=== PATIENT | female | born 1940 | race Caucasian/White ===

== ENCOUNTER 2022-09-05 10:07 | Emergency (ER) | payer MEDICARE, SELFPAY ==
[2022-09-05 10:26] VITALS: BP 119/81; PULSE 119; RESP 16; TEMP 37.8; O2SAT 98
--- NOTE | 2022-09-05 11:26 | ED.URI ---
HPI - URI/Sore Throat General Chief Complaint: Upper Respiratory Infection Stated Complaint: flu sx Time Seen by Provider: 09/05/22 11:26 Source: patient and RN notes reviewed Mode of arrival: ambulatory Limitations: no limitations History of Present Illness HPI Narrative: 82-year-old female presented for complaint of cough since yesterday. Endorses she lives with her sister who tested positive for covid and flu yesterday. Not taking anything for symptoms. Denies sob, wheezing, fatigue, n/v/d/f/c. MD elicited complaint: cough Related Data Home Medications Medication Instructions Recorded Confirmed allopurinol 100 mg tablet 100 mg PO DAILY 09/05/22 09/05/22 atorvastatin 40 mg tablet 40 mg PO DAILY 09/05/22 09/05/22 omeprazole 20 mg capsule,delayed 20 mg DAILY 09/05/22 09/05/22 release Allergies Allergy/AdvReac Type Severity Reaction Status Date / Time No Known Allergies Allergy Verified 09/05/22 10:33 Review of Systems Review of Systems: CONSTITUTIONAL: Denies malaise, chills, sweats, fever EYES: Denies visual changes, redness, or discharge ENT:Denies rhinorrhea, congestion, sinus pain, otalgia, sore throat CARDIOVASCULAR: Denies chest pain, palpitations, edema RESPIRATORY: Reports cough, Denies dyspnea GASTROINTESTINAL: Denies abdominal pain, nausea, vomiting, diarrhea SKIN: Denies rash or itching MUSCULOSKELETAL: Denies myalgia NEUROLOGIC: Denies headache PMFSH Past Medical History Medical History (Updated 09/05/22 @ 11:37 by Celeste Olson, WIRELINE FIELD OPERATOR) No pertinent past medical history Exam Narrative: GENERAL: mildly Ill-appearing, nontoxic no acute distress. HEAD: Normocephalic EYES: PERRLA, conjunctivae clear, periorbital erythema (reports chronic) ENT: Mucous membranes moist. TM pearly johns with dull light reflex bilaterally; no tragal tenderness. NECK: Supple. No lymphadenopathy CHEST: Clear to auscultation, breath sounds equal. Frequent moist gypsum roofer cough. No wheezing, rhonchi, rales, or stridor. No respiratory distress, speaks in full sentences. HEART: Regular rate and rhythm. No murmur heard. SKIN: Warm, dry, no rash. NEURO: Alert Course Course Emergency Course: Patient is aware of diagnosis, understands and agrees to treatment plan. Anticipatory guidance given. Patient agrees to follow-up as directed and is aware of reasons to seek care at the emergency department. Portions of this record may have been created with voice recognition software Level of Care: Express Care Visit Vital Signs Vital signs: Vital Signs Temperature 100.0 F H 09/05/22 10:26 Pulse Rate 119 H 09/05/22 10:26 Respiratory Rate 16 09/05/22 10:26 Blood Pressure 119/81 09/05/22 10:26 Pulse Oximetry 98 09/05/22 10:26 Oxygen Delivery Room Air 09/05/22 10:26 Temperature 100.0 F H 09/05/22 10:26 Pulse Rate 119 H 09/05/22 10:26 Respiratory Rate 16 09/05/22 10:26 Blood Pressure 119/81 09/05/22 10:26 Pulse Oximetry 98 09/05/22 10:26 Oxygen Delivery Room Air 09/05/22 10:26 reviewed MDM - URI/Sore Throat MDM Narrative Medical decision making narrative: Results of negative covid and flu reviewed with pt and sister. Advised likely too early and to presume positive given sx and known exposure. Advised supportive measures and signs/symptoms to go to the ER. Pt is appropriate for outpt treatment and f/u. Differential Diagnosis Differential diagnosis: Likely upper respiratory infection, sinusitis, viral infection, bronchitis and influenza Lab Data Labs: Lab Results 09/05/22 Range/Units 10:40 POC SARS CoV-2 Ag Negative (Negative) Influenza A Screen Negative Reference Range: Negative Influenza B Screen Negative Reference Range: Negative Discharge Plan Discharge Clinical Impression: Viral infection Patient Disposition: Home, Self-Car
== END 2022-09-05 11:26 | disposition home or self-care (01) ==
PROVIDERS: Emergency Provider Nurse Practitioner Family
DX: B34.9 Viral infection, unspecified (principal); Z20.822 Contact with and (suspected) exposure to COVID-19
CPT/HCPCS: 87426; 87804; 99203; C9803; G0463

== ENCOUNTER 2022-09-07 19:48 | Emergency (ER) | payer MEDICARE, SELFPAY ==
[2022-09-07 19:55] VITALS: O2SAT 98
[2022-09-07 19:56] VITALS: BP 164/116; PULSE 113; RESP 20; TEMP 37.3; O2SAT 98
--- NOTE | 2022-09-07 20:09 | ED.URI ---
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 Patient was seen at this facility 2 days ago for c/o cough; tested negative for covid, given prescription for steroid. Reports med compliance. Patient denies shortness of breath but has audible wheezing upon arrival and is poor historian. Denies chest pain, nausea, vomiting, diarrhea, fevers or chills. Patient is accompanied by sister who also provides information. MD elicited complaint: cough Related Data Home Medications Medication Instructions Recorded Confirmed allopurinol 100 mg tablet 100 mg PO DAILY 09/05/22 09/07/22 atorvastatin 40 mg tablet 40 mg PO DAILY 09/05/22 09/07/22 benzonatate 200 mg capsule 200 mg PO TID PRN Cough 09/07/22 09/07/22 prednisone 20 mg tablet 40 mg PO DAILY 09/07/22 09/07/22 Allergies Allergy/AdvReac Type Severity Reaction Status Date / Time No Known Allergies Allergy Verified 09/07/22 19:51 Review of Systems Review of Systems: CONSTITUTIONAL: Denies malaise, chills, sweats, fever EYES: Denies visual changes, redness, or discharge ENT: Denies rhinorrhea, congestion, sinus pain, otalgia, sore throat CARDIOVASCULAR: Denies chest pain, palpitations, edema RESPIRATORY: Reports cough, wheezing MUSCULOSKELETAL: Denies myalgia NEUROLOGIC: Denies headache [facility] Past Medical History Medical History No pertinent past medical history Exam Narrative: GENERAL: Ill-appearing, nontoxic no acute distress. EYES: PERRLA, conjunctivae clear ENT: Mucous membranes moist. No tripod positioning, muffled voice, soft palate or pharyngeal wall bulging NECK: Supple. No lymphadenopathy CHEST: Wheezing throughout all george. cough is harsh/wheezing. No respiratory distress, speaks in full short sentences. HEART: Regular rate and rhythm. No murmur heard. SKIN: Warm, dry, no rash. NEURO: Alert x2 PSYCH: Normal mood Course Course Emergency Course: Patient is aware of diagnosis, understands and agrees to treatment plan. Anticipatory guidance given. Portions of this record may have been created with voice recognition software Level of Care: Express Care Visit Vital Signs Vital signs: Vital Signs Temperature 99.1 F 09/07/22 19:56 Pulse Rate 113 H 09/07/22 19:56 Respiratory Rate 20 09/07/22 19:56 Blood Pressure 164/116 H 09/07/22 19:56 Pulse Oximetry 98 09/07/22 19:56 Oxygen Delivery Room Air 09/07/22 19:56 Temperature 99.1 F 09/07/22 19:56 Pulse Rate 113 H 09/07/22 19:56 Respiratory Rate 20 09/07/22 19:56 Blood Pressure 164/116 H 09/07/22 19:56 Pulse Oximetry 98 09/07/22 19:56 Oxygen Delivery Room Air 09/07/22 19:56 reviewed Transfer Transfered to: [facility] Transportation: ALS Transfer rationale: Pt is agreeable to transfer. Requests transfer to [facility] via ambulance. Risks of transportation reviewed with pt including injury, worsening of condition and . v/u. Report called to hospital, spoke with Jojo MIGUEL, Dr Betts accepting physician. Pt is in stable condition at time of transfer. Advised to remain NPO and go directly to the hospital. MDM - URI/Sore Throat MDM Narrative Medical decision making narrative: DuoNeb given upon arrival. Mild improvement in aeration, continues with audible wheezing. O2 sat 96% RA. Advised ER transfer via EMS. Requested [facility] however they are on 'bypass status' and do not have CT capabilities. They then requested [facility] in [place], as patient's caregiver resides in [facility]. Differential Diagnosis Differential diagnosis: Lik
[2022-09-07] MEDS: ALBUTEROL SULFATE NEB 2.5 MG/3 ML INH INHALATION (20:15)
[2022-09-07] MEDS: IPRATROPIUM BR 0.02% INH SOLN 0.5 MG/2.5 ML VIAL INHALATION (20:16)
[2022-09-07 20:45] VITALS: PULSE 109; O2SAT 96
== END 2022-09-07 20:58 | disposition short-term general hospital (02) ==
PROVIDERS: Emergency Provider Nurse Practitioner Family
DX: R06.2 Wheezing (principal)
CPT/HCPCS: 94640; 99215; G0463

== ENCOUNTER 2023-06-07 12:43 | Emergency (ER) | payer MEDICARE, SELFPAY ==
--- NOTE | ~2023-06-07 | XR_ITS ---
EXAMINATION: XR chest 2V 06/07/2023 14:39 INDICATION: Cough PROCEDURE: 2 view chest COMPARISON: No prior studies for comparison. FINDINGS: The lungs are clear. The cardiomediastinal silhouette is within normal limits. There are no pleural effusions. There is no pneumothorax suspected. IMPRESSION: 1: NO ACUTE CARDIOPULMONARY DISEASE. Reviewed, dictated and finalized at location B. [employer]
[2023-06-07 13:03] VITALS: BP 149/89; PULSE 80; RESP 20; TEMP 36.8; O2SAT 96
--- NOTE | 2023-06-07 14:24 | ED.URI ---
HPI - URI/Sore Throat General Chief Complaint: Upper Respiratory Infection Stated Complaint: Cough/SOB Time Seen by Provider: 06/07/23 14:17 Source: family (sister) Mode of arrival: ambulatory Limitations: dementia History of Present Illness HPI Narrative: Sister presents patient today complaining of a 6 day history of congestion, rhinorrhea, cough and decreased oral intake. Denies fever. She has been receiving Flonase for her symptoms. Related Data Home Medications Medication Instructions Recorded Confirmed allopurinol 100 mg tablet 100 mg PO DAILY 09/05/22 06/07/23 atorvastatin 40 mg tablet 40 mg PO DAILY 09/05/22 06/07/23 Allergies Allergy/AdvReac Type Severity Reaction Status Date / Time No Known Allergies Allergy Verified 06/07/23 13:07 Review of Systems Review of Systems: CONSTITUTIONAL: Denies body aches, fever, chills, or sweats. EYES: Denies visual changes, redness, or discharge. ENT: Denies sore throat, or otalgia.+ congestion, rhinorrhea CARDIOVASCULAR: Denies chest pain, palpitations, or edema. RESPIRATORY: Denies dyspnea.+ cough GASTROINTESTINAL: Denies abdominal pain, nausea, vomiting, or diarrhea.+ decreased intake GENITOURINARY: Denies dysuria or hematuria. SKIN: Denies rash, itching, or wounds. MUSCULOSKELETAL: Denies back pain, joint pain, or myalgia. NEUROLOGIC: Denies headache, numbness, tingling, or weakness. PSYCH: Denies depression or anxiety. [facility] Past Medical History Medical History (Updated 06/07/23 @ 14:58 by Shana Talbot, [facility], ) Dementia No pertinent past medical history Comments At time of signature, I have reviewed and agree with nursing past medical, surgical, social and family history unless otherwise noted. Please see nursing chart for further information. There is no relevant family history pertinent to the presenting complaint Exam Narrative: GENERAL: Well-appearing, well-nourished, and in no acute distress. HEAD: Normocephalic, atraumatic. EYES: EOMI. No redness or drainage. Conjunctivae normal. ENT: Mucous membranes pink and moist. Nares clear. No rhinorrhea. TMs normal bilaterally. Throat normal. Uvula midline. NECK: Normal AROM. Supple. No lymphadenopathy. CHEST: No respiratory distress. Clear to auscultation. HEART: Regular rate and rhythm. No murmur appreciated. EXTREMITIES: Normal range of motion. No edema. SKIN: Warm, dry, no rash. Capillary refill normal. Normal skin turgor. NEURO: No focal deficits. Alert and oriented x2. Gait steady. PSYCH: Normal affect. No signs of depression or anxiety. Course Course Level of Care: Express Care Visit Vital Signs Vital signs: Vital Signs Temperature 98.2 F 06/07/23 13:03 Pulse Rate 80 06/07/23 13:03 Respiratory Rate 20 06/07/23 13:03 Blood Pressure 149/89 H 06/07/23 13:03 Pulse Oximetry 96 06/07/23 13:03 Oxygen Delivery Room Air 06/07/23 13:03 Temperature 98.2 F 06/07/23 13:03 Pulse Rate 80 06/07/23 13:03 Respiratory Rate 20 06/07/23 13:03 Blood Pressure 149/89 H 06/07/23 13:03 Pulse Oximetry 96 06/07/23 13:03 Oxygen Delivery Room Air 06/07/23 13:03 Reviewed MDM - URI/Sore Throat MDM Narrative Medical decision making narrative: Chest x-ray negative. Symptoms likely viral in etiology. Discussed with sister [id number] medications that are safe to take for patient. No prescription medications indicated at this time. Anticipatory guidance given. Differential Diagnosis Differential diagnosis: Likely upper respiratory infection, otitis media, sinusitis, viral infection, bronchitis and other (pneumonia) Imaging Data Radiologist's impression: ITS Impressions Chest X-Ray 06/07/23 14:44 IMPRESSION: 1: NO ACUTE CARDIOPULMONARY DISEASE. Critical Care Time Critical Care Time Critical Care Time: No Discharge Plan Discharge Clinical Impression: Upper respiratory infection Qualifiers: URI type: unspec
== END 2023-06-07 15:02 | disposition home or self-care (01) ==
PROVIDERS: Emergency Provider Nurse Practitioner
DX: J06.9 Acute upper respiratory infection, unspecified (principal); F03.90 Unspecified dementia, unspecified severity, without behavioral disturbance, psychotic disturbance, mood disturbance, and anxiety; Z79.899 Other long term (current) drug therapy
CPT/HCPCS: 71046; 99213; G0463